=== PATIENT | male | born 1965 | race Caucasian/White ===

== ENCOUNTER 2018-07-28 13:50 | Emergency (ER) | payer BC ==
[2018-07-28 15:13] VITALS: BP 152/81
--- NOTE | 2018-07-28 15:25 | UC ---
Eye Complaint HPI - HPI Summary HPI Summary: Pt c/o gradual right eye discomfort, purulent discharge, swelling after sawing sheet rock and getting dust in eye earlier today. Pt states that right eye has "gritty" feeling and reports that he flushed eye out at home in shower. Pt denies 'fB in eye, just states dust was "in the air" - History of Current Complaint Chief Complaint: UCEye Stated Complaint: RT EYE CONCERN Time Seen by Provider: 07/28/18 15:19 Hx Obtained From: Patient Onset/Duration: Gradual Onset, Lasting Hours, Still Present Timing: Constant Severity Initially: Mild Severity Currently: Mild Pain Intensity: 2 Character: Foreign Body Sensation Alleviating Factor(s): Nothing Associated Signs And Symptoms: Positive: Drainage (Clear), Drainage (Purulent), Swelling Related History: Foreign Body - possible - Risk Factors Penetrating Injury Risk Factor: Negative Globe Rupture Risk Factors: Negative Acute Glaucoma Risk Factors: Negative Optic Artery Occlusion Risk Factors: Negative - Allergies/Home Medications Allergies/Adverse Reactions: Allergies Allergy/AdvReac Type Severity Reaction Status Date / Time bee venom protein (honey bee) Allergy Severe Difficulty Verified 07/28/18 15:04 Breathing Home Medications: Home Medications Epi-Pen 1 dose IM SEE INSTRUCTIONS 07/28/18 [History] Lisinopril 10 mg PO QAM 07/28/18 [History Confirmed 07/28/18] Tamsulosin CAP* [Flomax CAP*] 0.4 mg PO DAILY 07/28/18 [History Confirmed ] PMH/Surg Hx/FS Hx/Imm Hx Previously Healthy: Yes Endocrine History: Diabetes Cardiovascular History: Cardiac Disease - Surgical History Surgical History: None - Family History Known Family History: Positive: Cardiac Disease - Social History Occupation: Employed Full-time Lives: With Family Alcohol Use: Daily Alcohol Amount: 6 Substance Use Type: None Smoking Status (MU): Never Smoked Tobacco Have You Smoked in the Last Year: No - Immunization History Most Recent Tetanus Shot: Unknown Review of Systems All Other Systems Reviewed And Are Negative: Yes Constitutional: Positive: Negative Skin: Positive: Negative Eyes: Positive: Drainage, Eye Redness ENT: Positive: Negative Respiratory: Positive: Negative Cardiovascular: Positive: Negative Gastrointestinal: Positive: Negative Genitourinary: Positive: Negative Motor: Positive: Negative Neurovascular: Positive: Negative Musculoskeletal: Positive: Negative Neurological: Positive: Negative Psychological: Positive: Negative Is Patient Immunocompromised?: No Physical Exam Triage Information Reviewed: Yes Appearance: Well-Appearing Vital Signs: Initial Vital Signs Temp 98.1 F 07/28/18 15:06 Pulse 94 07/28/18 15:06 Resp 20 07/28/18 15:06 BP 152/81 07/28/18 15:06 Pulse Ox 100 07/28/18 15:06 Vital Signs Reviewed: Yes Eyes: Positive: Discharge - purulent and clear. , no FB, no gross corneal abrasion ENT Exam: Normal Dental Exam: Normal Neck exam: Normal Respiratory: Positive: No respiratory distress Musculoskeletal Exam: Normal Neurological Exam: Normal Psychological Exam: Normal Skin Exam: Normal Eye Complaint Course/Dx - Differential Dx/Diagnosis Differential Diagnosis/HQI/PQRI: Corneal Abrasion, Foreign Body Provider Diagnosis: Conjunctivitis, right eye, Irritation of right eye Discharge - Sign-Out/Discharge Documenting (check all that apply): Patient Departure All imaging exams completed and their final reports reviewed: No Studies - Discharge Plan Condition: Stable Disposition: HOME Prescriptions: Polymyx/Trimethoprim OPTH* [Polytrim OPHTH*] 2 drop RIGHT EYE Q3H 7 Days #1 btl Patient Education Materials: Conjunctivitis (ED) Referrals: Fabi KEANE,Trace Mehta [Primary Care Provider] - If Needed Additional Instructions: PLEASE FOLLOW UP WITH YOUR EYE CARE PROVIDER IN 2 DAYS OR EARLIER IF NECESSARY - Billing Disposition and Condition Condition: STABLE Disposition: Home - Attestation Statements Provider Attestation: Per institutional requirements, I have reviewed the chart, however, I was not consulted specifically or made aware of this patient by the midlevel provider. I did not personally evaluate, interact with , or disposition this patient.
== END 2018-07-28 15:31 | disposition home or self-care (01) ==
LOC: UCCORT 13:50
DX: H10.9 Unspecified conjunctivitis (principal); H57.89 Other specified disorders of eye and adnexa; Z91.030 Bee allergy status
CPT/HCPCS: 99202; G0463